=== PATIENT | female | born 1935 | race Hispanic/Latino ===

== ENCOUNTER → 2019-08-31 | Day surgery (SDC) | payer MEDICARE, OTHER ==
[2019-08-27 13:52] LABS: BASOPHILS # (AUTO) 0.1 (0.0-0.1); BASOPHILS % 0.9 % (0.0-1.0); EOSINOPHILS # (AUTO) 0.3 (0.0-0.4); EOSINOPHILS % 2.9 % (0.0-6.0); HEMATOCRIT 39.5 % (34.2-44.1); HEMOGLOBIN 12.8 g/dL (12.0-16.0); LYMPHOCYTES # (AUTO) 3.5 (1.0-3.2); LYMPHOCYTES % 35.2 % (18.0-39.1); MEAN CORPUSCULAR HEMOGLOBIN 28.9 pg (28-32); MEAN CORPUSCULAR HGB CONC 32.4 g/dL (31-35); MEAN CORPUSCULAR VOLUME 89.2 fL (81-99); MONOCYTES # (AUTO) 0.5 (0.2-0.8); MONOCYTES % 5.1 % (4.4-11.3); NEUTROPHILS # (AUTO) 5.4 (2.1-6.9); NEUTROPHILS % 55.5 % (38.7-80.0); PLATELET COUNT 143 x10e3/uL (140-360); RED BLOOD COUNT 4.43 x10e6/uL (3.6-5.1); RED CELL DISTRIBUTION WIDTH 13.4 % (11.7-14.4)
--- NOTE | 2019-08-27 13:53 | Diagnostic Imaging Report ---
EXAMINATION: CHEST 2 VIEWS INDICATION: Pre-operative COMPARISON: None FINDINGS: LINES/TUBES:None LUNGS:The lungs are well-inflated. No focal consolidation or pulmonary edema. PLEURA:No pleural effusion or pneumothorax. MEDIASTINUM:The cardiomediastinal silhouette appears normal in size and shape. BONES/SOFT TISSUES:No acute osseous injury. ABDOMEN:No free air under the diaphragm. IMPRESSION: No focal pneumonia or pulmonary edema. Signed by: Nataly Haney MD on 08/27/2019 1:50 PM
[2019-08-27 14:11] LABS: ALBUMIN 3.7 g/dL (3.5-5.0); ALBUMIN/GLOBULIN RATIO 1.1 (0.8-2.0); ANION GAP 14.1 mmol/L (8-16); CALCIUM 10.2 mg/dL (8.4-10.2); CREATININE, SERUM 1.1 mg/dL (0.57-1.11); POTASSIUM 4.1 mmol/L (3.5-5.1)
[~2019-08-31] MED LIST: ASPIRIN EC81 MG PO; BUPIVACAINE 0.25%/EPI 30ML SDV INJ ONE; CALTRATE 600 W1 EACH PO; CEFAZOLIN SOD 1 GM/NS 50ML 100 ML IV ONE; DEXAMETHASONE SOD PHOS INJ 4 MG/ML VIAL ONE; ESTROGENS CONJUGATED VAGINAL CR 45 GM TUBE PV ONE; ETOMIDATE 2 MG/ML 10 ML INJ IV ONE; FENTANYL CITRATE/PF 100MCG/2 ML INJ ONE; FERROUS SULFAT324 MG PO; GERITOL COMPLE1 EACH PO; GLIPIZIDE XL10 MG PO; GLIPIZIDE5 MG PO; LEVOTHYROXINE50 MCG PO; LIDOCAINE HCL 2% LOCAL INJ 5 ML SDV VIAL INJ ONE; LISINOPRIL PO; MEPERIDINE HCL INJ 25 MG/ML VIAL ONE; METFORMIN HCL850 MG PO; MULTI-VITAMIN1 EACH PO; ONDANSETRON HCL INJ 2MG/ML 2ML 2 MG/ML VIAL ONE; SEVOFLURANE INHAL SOLN 250 ML PEN BTL ONE; VITAMIN D250 MCG PO
[2019-08-31 14:30] VITALS: BP 128/70
--- NOTE | 2019-08-31 18:37 | Operative Report ---
DATE OF PROCEDURE: SURGEON: Ban Sahu MD OPERATIVE REPORT AND DISCHARGE SUMMARY NAME OF PROCEDURE: LeFort colpocleisis. posterior repair PREOPERATIVE DIAGNOSIS: Procidentia. POSTOPERATIVE DIAGNOSIS: Procidentia. OVEN LABORER: Ivonne Fallon M.D. INDICATIONS FOR THE PROCEDURE: The patient is an 83-year-old patient, who presented with procidentia and discomfort. The patient was counseled on the options and decided to have colpocleisis as she no longer desired to be sexually active. ESTIMATED BLOOD LOSS: 50 mL. DESCRIPTION OF PROCEDURE: The patient was taken to the operating room, where she underwent general anesthesia. She was placed in dorsal lithotomy position and Eliecer Stirrups. She was prepped and draped in the usual sterile fashion. A formal time-out was performed to confirm correct patient, site, and procedure. Urias catheter was inserted using sterile technique and dependent drainage. The cervix was grasped with Allis x2 and anterior and posterior lip of the cervix using a marking pen on vaginal epithelium, were marked anteriorly and posteriorly. The vaginal mucosa was injected with 1% lidocaine. The marked areas were incised using a scalpel. Sharp dissection was used to remove the vaginal epithelium from the anterior and posterior aspects. Two tunnels using interrupted 0-Vicryl sutures were then created laterally. Interrupted 0 vicryl suture was then used to suture the anterior and posterior vaginal wall, turning the uterus and vaginal apex inwards gradually. 0-vicryl continuous suture was then used to suture the remaining vaginal epithelium. At this time, a posterior repair. Lidocaine solution was infiltrated into the posterior vaginal mucosa midline to perineal body. Transverse incision was cut into the perineum, the posterior vaginal wall was opened vertically in midline. The opened vaginal mucosa was dissected laterally with sharp and blunt dissection exposing the perirectal fascia. The perirectal fascia was then reapproximated using interrupted 2-0 Vicryl sutures. A 0-Vicryl interrupted sutures were used to reapproximate the levator ani muscle x2. The excess vaginal mucosa was trimmed and the posterior vaginal wall was then closed with a running 2-0 Vicryl suture. The superficial perineal muscles were then closed with 0-Vicryl and perineal skin was closed with running subcuticular 2-0 Vicryl. At the end of the procedure, all instrument, sponges counts were correct. Urias was removed, it was noted to be draining clear urine. The patient tolerated the procedure well and was taken to the PACU in stable condition. MD MACKENZIE Lutz/ASTON /[id number]
--- NOTE | 2019-09-04 04:34 | Discharge Summary ---
NAME OF OPERATION: LeFort colpocleisis. HOSPITAL COURSE: The patient was admitted on August 30 for scheduled procedure. She underwent an uncomplicated LeFort colpocleisis and posterior repair. She postop remained stable with normal vital signs. She was able to void prior to discharge and she was discharged home on same day. Her family member was given precautions for return. She was advised to call or return for fever, severe pain, difficulty voiding, heavy vaginal bleeding, severe shortness of breath, chest pain, or nausea or vomiting. She has prescribed Motrin 600 mg every 6 hours along with percocet 5 mg every 6 hours. She was advised to follow up in 2 weeks, and given precautions to avoid heavy lifting or anything . The patient's family member expressed understanding both instructions, and expressed comfort with her discharge home. ADMISSION DIAGNOSIS: Procidentia. POSTOPERATIVE DIAGNOSIS: Procidentia, status post LeFort colpocleisis and posterior repair. MD MACKENZIE Lutz/MODL /[id number]
== END | disposition home or self-care (01) ==
LOC: OR 08:20
PROVIDERS: ATTEND Obstetrics & Gynecology
DX: N81.3 Complete uterovaginal prolapse (principal); E11.22 Type 2 diabetes mellitus with diabetic chronic kidney disease; I12.9 Hypertensive chronic kidney disease with stage 1 through stage 4 chronic kidney disease, or unspecified chronic kidney disease; N18.9 Chronic kidney disease, unspecified; Z01.810 Encounter for preprocedural cardiovascular examination; Z01.812 Encounter for preprocedural laboratory examination; Z01.818 Encounter for other preprocedural examination; Z11.59 Encounter for screening for other viral diseases; Z79.02 Long term (current) use of antithrombotics/antiplatelets; Z79.84 Long term (current) use of oral hypoglycemic drugs; Z79.82 Long term (current) use of aspirin
CPT/HCPCS: 36415 ×2; 57120; 71046; 80053; 82948; 85025; 87635; 93005; C1758; J0690; J1100; J2001; J2175; J2405; J3010